=== PATIENT | male | born 1955 ===

== ENCOUNTER 2018-02-06 06:56 | Day surgery (SDC) | payer MEDICARE ==
[2018-01-19 10:58] VITALS: BMI 34.7
[2018-02-06] MEDS ORDERED: Propofol 10 mg/ml Inj (20 ML) ONE (07:42)
[2018-02-06] MEDS ORDERED: Rocuronium 10 mg/ml (5 ml) ONE (07:42)
[2018-02-06] MEDS ORDERED: Succinylcholine 200 mg/10 ml Inj IV ONE (07:42)
[2018-02-06] MEDS ORDERED: Midazolam 2 MG/2 ML VIAL ONE (07:42)
[2018-02-06] MEDS ORDERED: Lidocaine PF 2% (5 ml) Inj (For Cardiac Arrhy) ONE (07:44)
[2018-02-06] MEDS ORDERED: CeFAZolin 1 gm in NS 100ml IVPB ONE (08:00)
[2018-02-06] MEDS ORDERED: ePHEDrine 50 mg/ml Inj ONE (08:13)
[2018-02-06] MEDS ORDERED: Bupivacaine 0.5% Inj(30mL) ONE (08:14)
[2018-02-06 08:33] VITALS: RESP 18
[2018-02-06] MEDS ORDERED: Bupivacaine 0.5% Inj(30mL) IJ ONE (08:35)
[2018-02-06] MEDS ORDERED: Neostigmine Methylsulfate 3mg/3ml Syringe IV ONE (09:23)
[2018-02-06] MEDS ORDERED: Glycopyrrolate 0.2 mg/ml (2ml vial) ONE (09:24)
--- NOTE | 2018-02-06 09:45 | PCM.SURG1 ---
Surgeon's Initial Post Op Note - Surgeon's Notes Surgeon: Dr. Burch [place] Rug Setter: Dr. Carolina PGY-3, Twila Grossman MS3 Type of Anesthesia: General Endo Anesthesia Administered By: Dr. Saavedra Pre-Operative Diagnosis: Incarcerated Umbilical Hernia Operative Findings: See operative report Post-Operative Diagnosis: Same Operation Performed: Laparoscopic Umbilical Hernia Repair with Mesh Specimen/Specimens Removed: None Estimated Blood Loss: EBL {In ML}: 10 Blood Products Given: N/A Drains Used: No Drains Post-Op Condition: Good Date of Surgery/Procedure: 02/06/18 Time of Surgery/Procedure: 09:48
[2018-02-06] MEDS ORDERED: HYDROmorphone 0.5 mg/0.5 ml ISec IVP PRN (09:48)
[2018-02-06] MEDS ORDERED: Lactated Ringer's 1,000 ML IV SCH (10:00)
--- NOTE | 2018-02-06 10:34 | OP ---
Copied To: Onur Burch MD Attending MD: Onur Burch MD PROCEDURE DATE: 02/06/2018 PREOPERATIVE DIAGNOSIS: Incarcerated incisional hernia. POSTOPERATIVE DIAGNOSIS: Incarcerated incisional hernia. PROCEDURE PERFORMED: Laparoscopic incarcerated incisional hernia repair with Symbotex mesh. SURGEON: Onur Burch MD. WHITE [employer] SYRUP OPERATOR: Gina Carolina DO. ANESTHESIOLOGIST: Zafar Saavedra MD. ANESTHESIA: General endotracheal anesthesia. ESTIMATED BLOOD LOSS: Minimal. SPECIMEN: None. INDICATIONS: The patient is a 62-year-old male with history of previous laparotomy, who developed an incisional hernia associated with pain and discomfort. The patient was evaluated and scheduled for the laparoscopic repair of the hernia. DESCRIPTION OF PROCEDURE: The patient was brought to the operating room and placed on the operating table in a supine position. The patient was connected to the EKG, blood pressure and pulse oximetry monitors. The patient then underwent general endotracheal anesthesia, was prepped and draped in the usual sterile fashion. First, a standard time-out procedure took place when everybody in the room agreed to the patient's identity, diagnoses and procedures to be performed. Using lidocaine mixed with Marcaine, the area of the left subcostal margin was infiltrate in a midclavicular line and carefully a small incision was made using 11 blade. Now, under direct visualization through the Visiport, access to the abdominal cavity was obtained and a 12 mm port was left in place once the pneumoperitoneum was obtained. Careful evaluation of the abdominal cavity revealed the presence of adhesions of omentum to the anterior abdominal wall and also into the hernia which was containing portion of the omentum. It appeared that there were 2 small defects in the midline just above the umbilicus that contained the hernia. At this point, we proceeded with placing the second 5 mm port in the left lower quadrant and proceeded with careful dissection of the omentum and the hernia content from the hernia sac. Once this was all detached, the 9 cm Symbotex mesh was placed into the abdominal cavity with 0 Vicryl stitch attached and was pulled using closure needle against the abdominal wall covering both defects with adequate margins of about 3.5-4 cm outside of the hernia defect. Once this was attached to the abdominal wall with the wrapped side of the mesh appropriately positioned against the wall. The were used to in order to fix it in place. Two rows of were used, one on the outside margin of the bridge[place] and one on the inner portion of the bridge[place]. Once this was completely attached and the ana cristina was removed, careful evaluation of abdominal cavity revealed that the patch was placed appropriately, it was lying flat and there was edge defects noted. We then released pneumoperitoneum, lift out the trocar sites which were not bleeding and proceeded with release of the pneumoperitoneum completely. The trocars were removed and the wound was closed using 0 Vicryl for the fascia, 3-0 Vicryl for the subcutaneous tissue and 4-0 Monocryl for skin. A sterile Dermabond dressing was applied to the wound. The patient tolerated the procedure well and there were no complications. The patient was awakened and transferred to the recovery room for further observation. Onur Burch MD
[2018-02-06 11:05] VITALS: TEMP 97.6
[2018-02-06 13:36] VITALS: BP 159/88; PULSE 67; O2SAT 95
== END 2018-02-06 14:40 | disposition home or self-care (01) ==
LOC: SDS 06:56
PROVIDERS: ATTEND General Practice
DX: K43.0 Incisional hernia with obstruction, without gangrene (principal); I10 Essential (primary) hypertension; E11.9 Type 2 diabetes mellitus without complications
CPT/HCPCS: 49655; 82948; J0330; J0690; J1170; J2250; J2405; J2704; J2710; J3010; J7120

== ENCOUNTER 2018-06-06 10:34 | Emergency (ER) | payer MEDICARE ==
[2018-06-06 10:38] VITALS: BMI 31.6
[2018-06-06] MEDS ORDERED: Albuterol-Ipratrop 3 mg / 0.5 (3 ml) UD IH STA (10:45)
--- NOTE | 2018-06-06 10:49 | ED PDOC ---
Arrival/HPI - General Historian: Patient - History of Present Illness Narrative History of Present Illness (Text): 06/06/18 10:46 63yo male with pmhx of NIDDM, Asthma who present with complaint of SOB since last night. States this is his typical Asthma symptom at least once a year. Notes his last exacerbation was last year. He uses albuterol inhaler multiple times at home without relieve. He is not steroid dependent. Never smoked tobacco. Never admitted for asthma, not intubated. he denies fever, chills, cough, sick contact, travel, diaphoresis, chest pain, dizziness, back pain, abdominal pain, any other complaint. <CassandraHappiness A - Last Filed: 06/06/18 14:54> <Vin Summers - Last Filed: 06/06/18 15:31> - General Chief Complaint: Shortness Of Breath Time Seen by Provider: 06/06/18 10:38 Past Medical History - Provider Review Nursing Documentation Reviewed: Yes - Infectious Disease Hx of Infectious Diseases: None - Cardiac Hx Hypertension: Yes - Pulmonary Hx Asthma: Yes Hx Bronchitis: Yes Hx Chronic Obstructive Pulmonary Disease (COPD): Yes - Neurological Hx Paralysis: No - HEENT Hx HEENT Disorder: No - Renal Hx Renal Disorder: No - Endocrine/Metabolic Hx Endocrine Disorders: Yes Hx Diabetes Mellitus Type 1: Yes Hx Diabetes Mellitus Type 2: Yes - Hematological/Oncological Hx Blood Transfusions: No - Integumentary Hx Dermatological Disorder: No - Musculoskeletal/Rheumatological Hx Musculoskeletal Disorders: Yes - Gastrointestinal Hx Gastrointestinal Disorders: Yes Other/Comment: [email or web address] - Genitourinary/Gynecological Hx Genitourinary Disorders: No Other/Comment: 05/2016 circumcision - Psychiatric Hx Emotional Abuse: No Hx Physical Abuse: No Hx Substance Use: No - Surgical History 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) Hx Joint Replacement: Yes (LEFT TOTAL KNEE REPLACEMENT 2013) Hx Orthopedic Surgery: Yes (left knee replacement) Other/Comment: RIGHT 5TH FINGER AMPUTED - Anesthesia Hx Anesthesia Reactions: No Hx Malignant Hyperthermia: No - Suicidal Assessment Feels Threatened In Home Enviroment: No <Diru,Happiness A - Last Filed: 06/06/18 14:54> Family/Social History - Physician Review Nursing Documentation Reviewed: Yes Family/Social History: Unknown Family HX Smoking Status: Never Smoked Hx Alcohol Use: No Hx Substance Use: No <Diru,Happiness A - Last Filed: 06/06/18 14:54> Allergies/Home Meds <Reno Trujillo A - Last Filed: 06/06/18 14:54> <Miguelito Summersoper - Last Filed: 06/06/18 15:31> Allergies/Adverse Reactions: Allergies No Known Allergies Allergy (Verified 06/06/18 10:43) Home Medications: Home Meds Medication Instructions Recorded Confirmed RX: Esomeprazole Magnesium [Nexium] 40 mg PO QAM 04/29/14 06/06/18 RX: Escitalopram [Lexapro] 20 mg PO DAILY 03/09/16 06/06/18 RX: Metoprolol Tartrate [Lopressor] 25 mg PO DAILY 03/09/16 06/06/18 RX: Albuterol 0.083% [Albuterol 3 ml IH Q6 PRN 01/24/17 06/06/18 0.083% Inhal Yumiko (2.5 mg/3 ml) UD] Glimepiride [Amaryl] 4 mg PO DAILY 01/19/18 06/06/18 Insulin Degludec [Tresiba 36 unit SQ QAM 01/19/18 06/06/18 Flextouch U-100] RX: traMADol [Ultram] 50 mg PO Q6 01/19/18 06/06/18 Sitagliptin Phos/Metformin HCl 1 tab PO DAILY 01/19/18 06/06/18 [Janumet 50-1,000 mg Tablet] Review of Systems - Physician Review All systems were reviewed & negative as marked: Yes - Review of Systems Constitutional: Normal Eyes: Normal ENT: Normal Respiratory: SOB. absent: Cough, Sputum, Wheezing Cardiovascular: Normal Gastrointestinal: Normal Genitourinary Male: Normal Musculoskeletal: Normal Skin: Normal Neurological: Normal Endocrine: Normal Hemo/Lymphatic: Normal Psychiatric: Normal <Reno Trujillo A - Last Filed: 06/06/18 14:54> Physical Exam Vital Signs Reviewed: Yes Vital Signs Temp Pulse Resp BP Pulse Ox 06/06/18 10:41 97.4 F L 87 18 140/88 97 Temperature: Afebrile Blood Pressure: Normal Pulse: Regular Respiratory Rate: Normal Appearance: Positive for: Well-Appearing, Non-Toxic, Comfortable Pain Distress: None Mental Status: Positive for: Alert and Oriented X 3 - Systems Exam Head: Present: Atraumatic, Normocephalic Pupils: Present: PERRL Extroacular Muscles: Present: EOMI Conjunctiva: Present: Normal Mouth: Present: Moist Mucous Membranes Neck: Present: Normal Range of Motion Respiratory/Chest: Present: Good Air Exchange, Wheezes (Minimal expiratory wheeze at the bases), Decreased Breath Sounds. No: Respiratory Distress, Accessory Muscle Use, Rales, Retracting, Rhonchi Cardiovascular: Present: Regular Rate and Rhythm, Normal S1, S2. No: Murmurs Abdomen: No: Tenderness, Distention, Peritoneal Signs Back: Present: Normal Inspection Upper Extremity: Present: Normal Inspection. No: Cyanosis, Edema Lower Extremity: Present: Normal Inspection. No: Edema Neurological: Present: GCS=15, CN II-XII Intact, Speech Normal Skin: Present: Warm, Dry, Normal Color. No: Rashes Psychiatric: Present: Alert, Oriented x 3, Normal Insight, Normal Concentration <Diru,Happiness A - Last Filed: 06/06/18 14:54> Vital Signs Temp Pulse Resp BP Pulse Ox 06/06/18 14:18 98 F 91 H 20 138/84 95 06/06/18 12:35 90 18 129/84 99 06/06/18 10:50 21 97 06/06/18 10:41 97.4 F L 87 18 140/88 97 <Vin Summers - Last Filed: 06/06/18 15:31> Medical Decision Making ED Course and Treatment: 06/06/18 10:51 63yo male who present with complaint of SOB x2days. He notes similar symptom with his previous Asthma exacerbation. He was not hypoxic. Speaking in full sentence. He however have some minimal expiratory wheeze at the bases and decreased BS at lower bases. Labs Chest xray EKG Duoneb x3 solu medrol Reassess 06/06/18 10:53 EKG NSR @ 89bpm N-stemi 06/06/18 14:16 On re evaluation s/p treatment pt's lung was CTA b/l. He notes complete resolution of his symptoms. He was ambulatory without distress. Speaking and laughing without distress. Chest xray NAD His FS improved in ED s/p hydration. He is on insulin at home. Advised to continue with his medication and check his FS, hence he was DC home with Prednisone. Referred to his PMD. - RAD Interpretation Radiology Orders: 06/06/18 10:43 CHEST PORTABLE [RAD] Stat - Medication Orders Current Medication Orders: Methylprednisolone (Solu-Medrol) 125 mg IVP STAT STA Stop: 06/06/18 10:45 <Reno Trujillo A - Last Filed: 06/06/18 14:54> - Lab Interpretations Lab Results: 06/06/18 10:55 06/06/18 10:55 Lab Results 06/06/18 14:09: POC Glucose (mg/dL) 230 H 06/06/18 11:17: POC Glucose (mg/dL) 276 H 06/06/18 10:55: Sodium 136, Chloride 101, Potassium 4.8, Carbon Dioxide 27, Anion Gap 13, BUN 11, Creatinine 0.9, Est GFR ( Amer) > 60, Est GFR (Non- Af Amer) > 60, Random Glucose 311 H* D, Calcium 9.7, Magnesium 1.6 L, Total Bilirubin 0.6, AST 55, ALT 53, Alkaline Phosphatase 105, Lactate Dehydrogenase 631, Total Creatine Kinase 66, Troponin I < 0.01, Total Protein 7.8, Albumin 4.2, Globulin 3.5, Albumin/Globulin Ratio 1.2 06/06/18 10:55: pO2 40, VBG pH 7.34, VBG pCO2 55.0, VBG HCO3 29.7 H, VBG Total CO2 31.4 H, VBG O2 Sat (Calc) 75.5 H, VBG Base Excess 2.6 H, VBG Potassium 4.7, Sodium 136.0, Chloride 99.0, Glucose 331 H, Lactate 2.0, FiO2 21.0, Venous Blood Potassium 4.7 06/06/18 10:55: PT 11.7, INR 1.02, APTT 29.1 06/06/18 10:55: WBC 4.3 L, RBC 5.38, Hgb 15.5, Hct 46.8, MCV 87.0, MCH 28.8, MCHC 33.1, RDW 14.2, Plt Count 181, MPV 9.9, Gran % 59.1, Lymph % (Auto) 27.5, [place] % (Auto) 8.7 H, Eos % (Auto) 4.5, Baso % (Auto) 0.2, Gran # 2.51, Lymph # (Auto) 1.2, [place] # (Auto) 0.4, Eos # (Auto) 0.2, Baso # (Auto) 0.01 - RAD Interpretation Radiology Orders: 06/06/18 10:43 CHEST PORTABLE [RAD] Stat - Medication Orders Current Medication Orders: Discontinued Medications Albuterol/Ipratropium (Duoneb 3 Mg/0.5 Mg (3 Ml) Ud) 3 ml IH Q15M STA Stop: 06/06/18 10:46 Last Admin: 06/06/18 11:10 Dose: 3 ml Sodium Chloride (Sodium Chloride 0.9%) 1,000 mls @ 100 mls/hr IV .Q10H THANG Last Admin: 06/06/18 11:46 Dose: 100 mls/hr eMAR Start Stop Document 06/06/18 11:46 EB (Rec: 06/06/18 11:48 EB [id number] Intravenous Solution Start Date 06/06/18 Start Time 11:48 End Date 06/06/18 End time 21:48 Total Infusion Time 600 Magnesium Sulfate (Magnesium Sulfate 2 Gm/50 Ml Water) 2 gm in 50 mls @ 50 mls/hr IVPB ONCE ONE Stop: 06/06/18 13:09 Last Admin: 06/06/18 12:22 Dose: 50 mls/hr eMAR Start Stop Document 06/06/18 12:22 EB (Rec: 06/06/18 12:22 EB [id number] Intravenous Solution Start Date 06/06/18 Start Time 12:22 End Date 06/06/18 End time 13:22 Total Infusion Time 60 Methylprednisolone (Solu-Medrol) 125 mg IVP STAT STA Stop: 06/06/18 10:45 Last Admin: 06/06/18 11:10 Dose: 125 mg IVP Administration Document 06/06/18 11:10 EB (Rec: 06/06/18 11:10 EB [id number] Charges for Administration # of IVP Administrations 1 <Vin Summers - Last Filed: 06/06/18 15:31> - PA / FISHER / Resident Statement MD/DO has reviewed & agrees with the documentation as recorded. <Vin Summers - Last Filed: 12/19/18 15:31> Disposition/Present on Arrival - Present on Arrival Any Indicators Present on Arrival: No History of DVT/PE: No History of Uncontrolled Diabetes: Yes Urinary Catheter: No History of Decub. Ulcer: No History Surgical Site Infection Following: None - Disposition Have Diagnosis and Disposition been Completed?: Yes Disposition Time: 14:20 Patient Plan: Discharge <Reno Trujillo - Last Filed: 06/06/18 14:54> <Vin Summers - Last Filed: 06/06/18 15:31> - Disposition Diagnosis: Hyperglycemia, Asthma exacerbation Disposition: HOME/ ROUTINE Condition: STABLE Discharge Instructions (ExitCare): Asthma in Adults, Hyperglycemia, Adult Additional Instructions: Follow up with your doctor Return to ED for any new or worsening symptoms Prescriptions: RX: Prednisone 50 mg PO DAILY #4 tab Referrals: Jalen Angel MD [Primary Care Provider] - Follow up with primary Forms: [employer] (Occ[place])
[2018-06-06 11:04] LABS: VENOUS BLOOD GAS BASE EXCESS 2.6 mmol/L (0.0-2.0); VENOUS BLOOD GAS PO2 40 mm/Hg (30-55); VENOUS BLOOD PH 7.34 (7.32-7.43)
[2018-06-06 11:08] LABS: BASO # 0.01 K/mm3 (0.0-2.0); BASO % 0.2 % (0.0-3.0); EOS # 0.2 (0.0-0.7); EOS % 4.5 % (1.5-5.0); GRAN # 2.51 (1.4-6.5); GRAN % 59.1 % (50.0-68.0); HEMOGLOBIN 15.5 g/dL (14.0-18.0); LYMPH # 1.2 (1.2-3.4); LYMPH % 27.5 % (22.0-35.0); MEAN CORPUSCULAR HEMOGLOBIN 28.8 pg (25.0-35.0); MEAN CORPUSCULAR HGB CONC 33.1 g/dl (31.0-37.0); MEAN PLATELET VOLUME 9.9 fl (7.0-11.0); MONO # 0.4 (0.1-0.6); MONO % 8.7 % (1.0-6.0); RBC 5.38 10^6/uL (3.5-6.1); RED CELL DISTRIBUTION WIDTH 14.2 % (11.5-14.5); WHITE BLOOD COUNT 4.3 10^3/uL (4.5-11.0)
--- NOTE | 2018-06-06 11:12 | RAD ---
Date of service: 06/06/2018 HISTORY: SOB COMPARISON: 01/19/2018 FINDINGS: LUNGS: No active pulmonary disease. PLEURA: No significant pleural effusion identified, no pneumothorax apparent. CARDIOVASCULAR: No aortic atherosclerotic calcification present. Normal cardiac size. No pulmonary vascular congestion. OSSEOUS STRUCTURES: No significant abnormalities. VISUALIZED UPPER ABDOMEN: Normal. OTHER FINDINGS: None. IMPRESSION: No active disease.
[2018-06-06 11:15] LABS: INR 1.02; PARTIAL THROMBOPLASTIN TIME 29.1 Seconds (25.1-36.5); PROTHROMBIN TIME 11.7 SECONDS (9.4-12.5)
[2018-06-06 11:26] LABS: TROPONIN I < 0.01 ng/mL
[2018-06-06 11:31] LABS: ALB/GLOB RATIO 1.2 (1.1-1.8); ALBUMIN 4.2 g/dL (3.0-4.8); ALT/SGPT 53 U/L (7-56); AST/SGOT 55 U/L (17-59); BLOOD UREA NITROGEN 11 mg/dL (7-21); CALCIUM 9.7 mg/dL (8.4-10.5); GFR NON-AFRICAN AMERICAN > 60
[2018-06-06] MEDS ORDERED: Sodium Chloride 0.9% 1,000 ML IV SCH (11:45)
[2018-06-06] MEDS ORDERED: Magnesium Sulfate 2 gm/50 ml 2 GM/50 ML BAG IVPB ONE (12:10)
--- NOTE | 2018-06-06 13:40 | CARD ---
APPROVED REPORT Date of service: 06/06/2018 EKG Measurement Heart [id number] <Conclusion> Normal sinus rhythm Cannot rule out Inferior infarct, age undetermined
[2018-06-06 14:19] VITALS: BP 138/84; PULSE 91; RESP 20; TEMP 98; O2SAT 95
== END 2018-06-06 14:20 | disposition home or self-care (01) ==
LOC: ED 10:34
DX: J45.901 Unspecified asthma with (acute) exacerbation (principal); E10.65 Type 1 diabetes mellitus with hyperglycemia; Z79.4 Long term (current) use of insulin; I10 Essential (primary) hypertension; Z96.652 Presence of left artificial knee joint
CPT/HCPCS: 71045; 80053; 82550; 82803; 82948; 83615; 83735; 84484; 85025; 85610; 85730; 87040; 93005; 96361; 96365; 96375; 99284; J2930; J7030

== ENCOUNTER 2018-08-19 16:20 | Emergency (ER) | payer MEDICARE ==
[2018-08-19 16:20] VITALS: BMI 31.6
[2018-08-19 16:30] VITALS: BP 147/97; PULSE 81; RESP 18; TEMP 97.4; O2SAT 97
[2018-08-19] MEDS ORDERED: Albuterol-Ipratrop 3 mg / 0.5 (3 ml) UD IH STA (16:34)
--- NOTE | 2018-08-19 16:37 | ED PDOC ---
Arrival/HPI - General Chief Complaint: Shortness Of Breath Time Seen by Provider: 08/19/18 16:29 Historian: Patient - History of Present Illness Time/Duration: Other (yesterday) Symptom Onset: Gradual Symptom Course: Worsening Severity Level: Moderate Activities at Onset: Rest Associated Symptoms (Text): 08/19/18 16:35 Patient complains of worsening shortness of breath with wheezing beginning yesterday. His albuterol inhaler is not helping. Similar to previous asthma exacerbations. No chest pain. No sputum production. No cough. No fever or chills. No injury or trauma. He does not appear to be in any respiratory distress. No accessory muscle use or retractions. Past Medical History - Infectious Disease Hx of Infectious Diseases: None - Cardiac Hx Hypertension: Yes - Pulmonary Hx Asthma: Yes Hx Bronchitis: Yes Hx Chronic Obstructive Pulmonary Disease (COPD): Yes - Neurological Hx Paralysis: No - HEENT Hx HEENT Disorder: No - Renal Hx Renal Disorder: No - Endocrine/Metabolic Hx Endocrine Disorders: Yes Hx Diabetes Mellitus Type 1: Yes Hx Diabetes Mellitus Type 2: Yes - Hematological/Oncological Hx Blood Transfusions: No - Integumentary Hx Dermatological Disorder: No - Musculoskeletal/Rheumatological Hx Musculoskeletal Disorders: Yes - Gastrointestinal Hx Gastrointestinal Disorders: Yes Other/Comment: [email or web address] - Genitourinary/Gynecological Hx Genitourinary Disorders: No Other/Comment: 05/2016 circumcision - Psychiatric Hx Emotional Abuse: No Hx Physical Abuse: No Hx Substance Use: No - Surgical History 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) Hx Joint Replacement: Yes (LEFT TOTAL KNEE REPLACEMENT 2013) Hx Orthopedic Surgery: Yes (left knee replacement) Other/Comment: RIGHT 5TH FINGER AMPUTED - Anesthesia Hx Anesthesia Reactions: No Hx Malignant Hyperthermia: No - Suicidal Assessment Feels Threatened In Home Enviroment: No Family/Social History - Physician Review Nursing Documentation Reviewed: Yes Family/Social History: Unknown Family HX Smoking Status: Never Smoked Hx Alcohol Use: No Hx Substance Use: No Allergies/Home Meds Allergies/Adverse Reactions: Allergies No Known Allergies Allergy (Verified 08/19/18 16:30) Home Medications: Home Meds Medication Instructions Recorded Confirmed Esomeprazole Magnesium [Nexium] 40 mg PO QAM 04/29/14 06/06/18 Escitalopram [Lexapro] 20 mg PO DAILY 03/09/16 06/06/18 Metoprolol Tartrate [Lopressor] 25 mg PO DAILY 03/09/16 06/06/18 Albuterol 0.083% [Albuterol 0.083% 3 ml IH Q6 PRN 01/24/17 06/06/18 Inhal Yumiko (2.5 mg/3 ml) UD] Glimepiride [Amaryl] 4 mg PO DAILY 01/19/18 06/06/18 Insulin Degludec [Tresiba 36 unit SQ QAM 01/19/18 06/06/18 Flextouch U-100] Sitagliptin Phos/Metformin HCl 1 tab PO DAILY 01/19/18 06/06/18 [Janumet 50-1,000 mg Tablet] traMADol [Ultram] 50 mg PO Q6 01/19/18 06/06/18 Review of Systems - Physician Review All systems were reviewed & negative as marked: Yes - Review of Systems Constitutional: absent: Fatigue, Fevers Respiratory: SOB, Wheezing. absent: Cough, Sputum Cardiovascular: absent: Chest Pain Gastrointestinal: absent: Abdominal Pain, Nausea, Vomiting Neurological: absent: Headache, Dizziness, Focal Weakness Physical Exam Vital Signs Temp Pulse Resp BP Pulse Ox 08/19/18 16:28 97.4 F L 81 18 147/97 H 97 Temperature: Afebrile Blood Pressure: Hypertensive Pulse: Regular Respiratory Rate: Normal Appearance: Positive for: Well-Appearing, Non-Toxic, Comfortable Pain Distress: None Mental Status: Positive for: Alert and Oriented X 3 - Systems Exam Head: Present: Atraumatic, Normocephalic Pupils: Present: PERRL Extroacular Muscles: Present: EOMI Conjunctiva: Present: Normal Ears: Present: NORMAL TM, Normal Canal. No: Erythema, TM Bulging Mouth: Present: Moist Mucous Membranes Pharnyx: No: ERYTHEMA, EXUDATE, TONSILS ENLARGED Neck: Present: Normal Range of Motion Respiratory/Chest: Present: Wheezes, Decreased Breath Sounds. No: Respiratory Distress, Accessory Muscle Use, Rales, Retracting, Rhonchi, Tachypneic, Tender to Palpation Cardiovascular: Present: Regular Rate and Rhythm, Normal S1, S2. No: Murmurs Abdomen: No: Tenderness, Distention, Peritoneal Signs, Rebound, Guarding Upper Extremity: Present: Normal Inspection. No: Cyanosis, Edema Lower Extremity: Present: Normal Inspection. No: Edema Neurological: Present: GCS=15, CN II-XII Intact, Speech Normal, Motor Func Grossly Intact Skin: Present: Warm, Dry, Normal Color. No: Rashes Psychiatric: Present: Alert, Oriented x 3, Normal Insight, Normal Concentration Medical Decision Making ED Course and Treatment: 08/19/18 17:04 Symptoms markedly improved post 1 treatment. Patient is no longer wheezing. He reports he feels much better. 08/19/18 17:05 Patient is trying to get home before the snow starts. His symptoms are markedly improved. Discharge home with prednisone and albuterol Asmanex to follow-up with PMD. Follow-up in ER as needed. - RAD Interpretation Radiology Orders: 08/19/18 16:34 CHEST PORTABLE [RAD] Stat Chest one view shows no infiltrate effusion or cardiomegaly. Health Center Manager: ED Physician - Medication Orders Current Medication Orders: Albuterol/Ipratropium (Duoneb 3 Mg/0.5 Mg (3 Ml) Ud) 3 ml IH ONCE STA Stop: 08/19/18 16:35 Prednisone (Prednisone Tab) 60 mg PO STAT STA Stop: 08/19/18 16:35 Disposition/Present on Arrival - Present on Arrival Any Indicators Present on Arrival: No History of DVT/PE: No History of Uncontrolled Diabetes: Yes Urinary Catheter: No History of Decub. Ulcer: No History Surgical Site Infection Following: None - Disposition Have Diagnosis and Disposition been Completed?: Yes Diagnosis: Asthma exacerbation, Dyspnea Disposition: HOME/ ROUTINE Disposition Time: 17:05 Patient Plan: Discharge Condition: IMPROVED Discharge Instructions (ExitCare): Asthma in Adults, Shortness of Breath (Dyspnea) (DC), Inhaled Corticosteroid Medicines Additional Instructions: Follow-up with PMD. Follow-up in ER as needed. Prescriptions: Mometasone Furoate [Asmanex Hfa] 100 mcg IH Q12 #1 cell Prednisone [Deltasone] 20 mg PO DAILY #5 tablet Benzonatate [Tessalon Perles] 100 mg PO Q8 #30 sgl Albuterol HFA [Ventolin HFA 90 mcg/actuation (8 g)] 2 puff IH [id number] #1 puff Referrals: FAMILY PROVIDER,NO [Primary Care Provider] - Follow up with primary Forms: [employer] (E[place]ian), WORK NOTE
--- NOTE | 2018-08-19 17:06 | RAD ---
HISTORY: wheezing COMPARISON: Chest x-ray performed 06/06/18 TECHNIQUE: Chest, one view. FINDINGS: Examination limited by habitus. LUNGS: No focal consolidation. Please note that chest x-ray has limited sensitivity for the detection of pulmonary masses. PLEURA: No significant pleural effusion identified. No definite pneumothorax . CARDIOVASCULAR: Borderline cardiomegaly. No significant atherosclerotic calcification present. OSSEOUS STRUCTURES: Degenerative changes of the spine. Acromioclavicular arthropathy. VISUALIZED UPPER ABDOMEN: Elevation/eventration of the right hemidiaphragm. OTHER FINDINGS: None. IMPRESSION: No focal consolidation.
== END 2018-08-19 17:25 | disposition home or self-care (01) ==
LOC: ED 16:20
DX: J45.901 Unspecified asthma with (acute) exacerbation (principal)

== ENCOUNTER 2018-11-06 11:22 | Outpatient (CLI) | payer MEDICARE | END 2018-11-06 11:23 | disposition home or self-care (01) | LOC: PULMO 11:22 ==